=== PATIENT | female | born 1975 | race Caucasian/White ===

== ENCOUNTER 2016-05-02 07:27 | Day surgery (SDC) | payer MEDICAID ==
[~2016-05-02] VITALS: Ht 154.9 cm; Wt 59.3 kg
[2016-05-02] VITALS (10 sets, daily range): BP systolic 98–121; BP diastolic 51–67; PULSE 63–84; RESP 12–16; Ht 154.9 cm; Wt 59.3 kg
[2016-05-02] MEDS ORDERED: BUPIVACAINE 0.5%/EPI (SDV) 30 ML INJ ONE (08:45)
[2016-05-02] MEDS ORDERED: FENTAnyl 50 MCG/ML VIAL ONE (08:54)
[2016-05-02] MEDS ORDERED: CEFAZOLIN 2 GM/50 ML (PMX) 50 ML IVPB ONE (09:00)
[2016-05-02] MEDS ORDERED: HYDROmorphONE (0.2 MG/ML) 10ML SYG IV PRN ×3 (09:00)
[2016-05-02] MEDS ORDERED: SOD CHLORIDE 0.9% 1,000 ML IV ONE (09:00)
[2016-05-02] MEDS ORDERED: METOCLOPRAMIDE 10 MG INJ IV PRN (09:00)
[2016-05-02] MEDS ORDERED: MEPERIDINE 25 MG INJ IV PRN (09:00)
[2016-05-02] MEDS ORDERED: FENTAnyl 50 MCG/ML VIAL IV PRN ×2 (09:00)
[2016-05-02] MEDS ORDERED: DIPHENHYDRAMINE 50 MG INJ IV PRN (09:00)
[2016-05-02] MEDS ORDERED: ONDANSETRON 4 MG INJ IV PRN (09:00)
--- NOTE | 2016-05-02 10:31 | OPR ---
DATE OF OPERATION: 05/02/2016 PREOPERATIVE DIAGNOSIS: Very large right breast mass. POSTOPERATIVE DIAGNOSIS: Very large right breast mass. OPERATION PERFORMED: Excision of right breast mass. ANESTHESIA: General. ANESTHESIOLOGIST: Dr. Najera SURGEON: Elliott Mason MD [employer]ITY SERVICES COORDINATOR: Dr. Vickers INDICATIONS FOR PROCEDURE: The patient is 41-year-old female who presented with a very large, appro ximately 8 to 10 cm, right breast mass. Biopsy was consistent with a probable epithelial lesion. S he was counseled as to the risks versus benefits of excision. She consented and was scheduled for [facility]. DESCRIPTION OF PROCEDURE: The patient was brought to the operating theater and placed under general anesthesia. The right breast was prepped and draped in the usual sterile fashion. The mass was lo cated between the 11 to 2 o'clock location of the right breast, 2 to 3 cm above the nipple. A curvi linear incision was made above the mass. The subcutaneous tissue was dissected with cautery down th rough the breast parenchyma. A multilobulated mass was identified. It was enucleated with a gloved finger, removed and sent for permanent pathologic analysis. The wound was irrigated. Bleeding was controlled with cautery. When all bleeding was controlled, the skin incision was reapproximated wi th 4-0 Vicryl in deep dermal interrupted fashion, followed by final skin approximation with 5-0 PDS sutures in subcuticular fashion. Benzoin and Steri-Strips were then applied. The patient tolerated the procedure well. Estimated blood loss was 20 mL. There were no complications. The patient was transported in stable condition to the recovery room, where a circumferential compression dressing w as applied. Dictated By: ELLIOTT MASON MD TL/JOSE ALFREDO Conf#: [id number] DID#: [id number]
[2016-05-02] MEDS ORDERED: CEFAZOLIN 1 GM INJ ONE (10:48)
[2016-05-02] MEDS ORDERED: ROCURONIUM 50 MG INJ ONE (10:48)
[2016-05-02] MEDS ORDERED: PROPOFOL 20 ML ONE (10:48)
[2016-05-02] MEDS ORDERED: LIDOCAINE 2% (SDV) 5 ML INJ ONE (10:48)
[2016-05-02] MEDS ORDERED: GLYCOPYRROLATE 0.4 MG INJ ONE (10:48)
[2016-05-02] MEDS ORDERED: NEOSTIGMINE 3 MG/3 ML SYRINGE ONE (10:48)
[2016-05-02] MEDS ORDERED: SUCCINYLCHOLINE CHLORIDE 100 MG/5 ML SYG IV ONE (10:48)
== END 2016-05-02 12:15 | disposition home or self-care (01) ==
LOC: SDS 07:27
PROVIDERS: ATTEND Surgery Surgical Oncology
DX: D24.1 Benign neoplasm of right breast (principal)
CPT/HCPCS: 19120; 84703; 88307; J0330; J0690; J1170; J2175; J2405; J2710; J3010; Z7512; Z7610